=== PATIENT | female | born 1975 | race Caucasian/White ===

== ENCOUNTER → 2020-08-23 | Outpatient (CLI) | payer BC ==
--- NOTE | 2020-09-05 14:59 | MM ---
Reason for exam: screening (asymptomatic). Last mammogram was performed 2 years and 6 months ago. History: Excisional biopsy of the left breast, 2018. Physical Findings: A clinical breast exam by your physician is recommended on an annual basis and results should be correlated with mammographic findings. MG 3D Screening Mammo W/Cad Bilateral CC and MLO view(s) were taken. Prior study comparison: February 19, 2018, mammogram, performed at [facility]. November 12, 2017, mammogram, performed at [facility]. No significant changes when compared with prior studies. ASSESSMENT: Benign, BI-RAD 2 RECOMMENDATION: Routine screening mammogram of both breasts in 1 year.
== END | disposition home or self-care (01) ==
LOC: RADMAMWWP 15:09
PROVIDERS: ATTEND Family Medicine
DX: Z12.31 Encounter for screening mammogram for malignant neoplasm of breast (principal)
CPT/HCPCS: 77063; 77067

== ENCOUNTER → 2022-04-04 | Outpatient (CLI) | payer BC ==
--- NOTE | 2022-04-04 17:01 | MR ---
EXAMINATION TYPE: MR shoulder RT wo con DATE OF EXAM: 04/04/2022 COMPARISON: None. HISTORY: pain R shoulder for 6 months with reduced mobility and difficulty raising arm overhead not i mproved on physical therapy TECHNIQUE: Multiplanar, multisequence imaging of the right shoulder is performed without contrast. FINDINGS: Rotator Cuff: Tiny articular tear distal supraspinatus tendon involving anterior fibers measuring 4 m m AP diameter sagittal image 6 x 7 mm transversely coronal image 10. Infraspinatus tendon is intact. Subscapularis tendon shows increased signal with surrounding fluid. Rotator cuff muscle bulk is prese rved. Acromioclavicular Joint: Moderate capsular hypertrophy. Type II downsloping acromion. Loss of underly ing fat plane at this level for reference coronal image 12. Glenohumeral Joint: No significant spurring. Small joint effusion. Mild to moderate narrowing. Labrum: The superior labrum shows increased signal. Biceps Tendon: The long head of biceps is in normal location within bicipital groove. Bone marrow signal: No focal abnormal marrow signal is appreciated. Other: No additional significant abnormality is appreciated. IMPRESSION: 1. Full-thickness articular surface tear involving the anterior 1/5 fibers supraspinatus tendon. 2. Tearing of the superior labrum may be degenerative in nature. 3. Type II downsloping acromion with suggestion of underlying impingement, correlate clinically.
== END | disposition home or self-care (01) ==
LOC: RADMRIMAIN 11:41
PROVIDERS: ATTEND Family Medicine
DX: M75.121 Complete rotator cuff tear or rupture of right shoulder, not specified as traumatic (principal)

== ENCOUNTER → 2023-04-17 | Outpatient (CLI) | payer BC ==
--- NOTE | 2023-04-17 13:18 | US ---
EXAMINATION TYPE: US arterial LE single level DATE OF EXAM: 04/17/2023 1:01 PM CLINICAL INDICATION: Female, 47 years old with history of I73.9 PERIPHERAL VASC DISEASE; Peripheral v ascular disease. Intermittent claudication. History of: Smoker: Previous Hypertension: yes Diabetic: Pre diabetic Hyperlipidemia: Yes TIA/CVA: No Previous Vascular Surgery: No CAD: No IA: No Vascular Ulcers: None Claudication: Both Gangrene: None Doppler Waveforms: Right: Multiphasic Left: Multiphasic Right Brachial Pressure: 114 Left Brachial Pressure: 111 Ankle-Brachial Indices: Right: 1.19 Left: 1.18 Toe Brachial Indices: Right: 0.89 Left: 0.80 IMPRESSION: Normal MATTIE and TBI indices.
== END | disposition home or self-care (01) ==
LOC: RADUSWWP 12:16
PROVIDERS: ATTEND Family Medicine
DX: I73.9 Peripheral vascular disease, unspecified (principal); E78.5 Hyperlipidemia, unspecified; I10 Essential (primary) hypertension
CPT/HCPCS: 93922

== ENCOUNTER → 2023-10-30 | Outpatient (CLI) | payer BC ==
[2023-10-30 18:36] LABS: Basophils # (A) 0.04 X 10*3/uL (0.00-0.10); Basophils % (A) 0.6 %; Eosinophils # (A) 0 X 10*3/uL (0.04-0.35); Eosinophils % (A) 0 %; HCT 34.9 % (37.2-46.3); HGB 11.4 g/dL (12.0-15.0); Lymphocytes # (A) 2.43 X 10*3/uL (0.90-5.00); Lymphocytes % (A) 34.1 %; MCHC 32.7 g/dL (32.0-37.0); MCV 85.7 FL (80.0-97.0); Mean Platelet Volume 11.2 FL (9.5-12.2); Monocytes # (A) 0.62 X 10*3/uL (0.20-1.00); Monocytes % (A) 8.7 %; NRBC Per 100 WBC 0 X 10*3/uL (0.00-0.01); Neutrophils # (A) 3.97 X 10*3/uL (1.80-7.70); Neutrophils % (A) 55.6 %; Platelet Count 406 X 10*3/uL (140-440); RBC 4.07 X 10*6/uL (4.10-5.20); RDW 13.7 % (11.5-14.5); WBC 7.13 X 10*3/uL (4.50-10.00)
[2023-10-31 00:05] LABS: ALT 25 U/L (8-44); AST 26 U/L (13-35); Albumin 4.4 g/dL (3.8-4.9); Albumin/Globulin Ratio 1.63 Ratio (1.60-3.17); Alkaline Phosphatase 41 U/L (41-126); Blood Urea Nitrogen 15.4 mg/dL (9.0-27.0); Calcium 10.1 mg/dL (8.7-10.3); Carbon Dioxide 22.6 mmol/L (21.6-31.8); Chloride 101 mmol/L (96-109); Chol/HDL Ratio 3.63 Ratio; Globulin 2.7 g/dL (1.6-3.3); Glucose 91 mg/dL (70-110); Potassium 3.6 mmol/L (3.5-5.5); Sodium 139 mmol/L (135-145); Total Bilirubin <0.2 mg/dL (0.3-1.2); Total Protein 7.1 g/dL (6.2-8.2)
== END | disposition home or self-care (01) ==
LOC: LABWHC1 14:32
PROVIDERS: ATTEND Nurse Practitioner Family
DX: Z00.00 Encounter for general adult medical examination without abnormal findings (principal); I10 Essential (primary) hypertension; E88.810 Metabolic syndrome
CPT/HCPCS: 36415; 80053; 80061; 83036; 84439; 84443; 84481; 85025

== ENCOUNTER → 2023-10-30 | Outpatient (CLI) | payer BC ==
--- NOTE | 2023-10-30 18:32 | MM ---
Reason for Exam: Screening (asymptomatic). Last mammogram was performed 3 year(s) and 2 month(s) ago. Patient History: Menarche at age 10. First Full-Term at age 16. 2018, Excisional Biopsy on the Left side. Risk Values: Cait 5 year model risk: 0.8%. NCI Lifetime model risk: 7.8%. Prior Study Comparison: 11/12/2017 Screening Mammogram, [facility]. 02/19/2018 Screening Mammogram, [facility]. 08/23/2020 Bilateral Screening Mammogram, [facility]. Tissue Density: The breasts are heterogeneously dense, which may obscure small masses. Findings: Analyzed By CAD. The pattern is symmetrical. Pattern appears stable. No significant interval change is evident. Scattered benign punctate calcifications are present. There is a new nodule within the medial 3:00 position right breast middle position. This measures 0.7 cm and is 7 cm from the nipple. Additional workup with mammogram and ultrasound is recommended. Overall Assessment: Incomplete: need additional imaging evaluation, BI-RAD 0 Management: Diagnostic Mammogram of the right breast. Diagnostic Breast Ultrasound of the right breast. A negative mammogram report should not preclude additional follow up of suspicious palpable abnormalities. Patient should continue monthly self breast exam. A clinical breast exam by your physician is recommended on an annual basis and results should be correlated with mammographic findings. Note on Cait scores and lifetime risk: 1. A Cait score greater than 3% is considered moderate risk. If this is the case, consider specialist referral to assess eligibility for a risk reducing agent. 2. If overall lifetime risk for the development of breast cancer is 20% or higher, the patient may qualify for future screening with alternating mammogram and breast MRI. Electronically signed and approved by: Gaurav Marrero D.O. Radiologis
== END | disposition home or self-care (01) ==
LOC: RADMAMWWP 14:08
PROVIDERS: ATTEND Obstetrics & Gynecology
DX: Z12.31 Encounter for screening mammogram for malignant neoplasm of breast (principal)
CPT/HCPCS: 77063; 77067

== ENCOUNTER → 2023-12-04 | Outpatient (CLI) | payer BC ==
--- NOTE | 2023-12-04 10:29 | MM ---
Reason for Exam: Additional evaluation requested from abnormal screening. Last screening mammogram was performed 1 month(s) ago. Patient History: Menarche at age 10. First Full-Term at age 16. 2018, Excisional Biopsy on the Left side. Risk Values: Cait 5 year model risk: 0.8%. NCI Lifetime model risk: 7.8%. Tissue Density: Right: The breasts are heterogeneously dense, which may obscure small masses. Findings: Analyzed By CAD. On the mediolateral view and 8mm rounded density with partially circumscribed margins may be in the upper medial left breast. The suspect density within the lower inner quadrant is not clearly identified. Ultrasound is recommended for additional evaluation. Overall Assessment: Incomplete: need additional imaging evaluation, BI-RAD 0 Management: Diagnostic Breast Ultrasound of the right breast. A negative mammogram report should not preclude additional follow up of suspicious palpable abnormalities. Patient should continue monthly self breast exam. A clinical breast exam by your physician is recommended on an annual basis and results should be correlated with mammographic findings. Note on Cait scores and lifetime risk: 1. A Cait score greater than 3% is considered moderate risk. If this is the case, consider specialist referral to assess eligibility for a risk reducing agent. 2. If overall lifetime risk for the development of breast cancer is 20% or higher, the patient may qualify for future screening with alternating mammogram and breast MRI. Electronically signed and approved by: Gaurav Marrero D.O. Radiologis
--- NOTE | 2023-12-04 11:07 | USB ---
Reason for Exam: Additional evaluation requested from abnormal screening. Patient History: Menarche at age 10. First Full-Term at age 16. 2018, Excisional Biopsy on the Left side. Risk Values: Cait 5 year model risk: 0.8%. NCI Lifetime model risk: 7.8%. Technique: Method: Targeted. Prior Study Comparison: 02/19/2018 Screening Mammogram, [facility]. 08/23/2020 Bilateral Screening Mammogram, [facility]. 10/30/2023 Bilateral MG 3D screening mammo w/cad, [facility]. Findings: The medial section of the breast of the right breast, the axilla of the right breast and the retroareolar of the right breast were scanned. There is a simple appearing cyst with good through transmission and posterior wall enhancement 1:00 position 7 cm from the nipple. This appears to correlate with the mammographic finding. This measures 0.7 x 0.7 x 0.7 cm. Overall Assessment: Benign, BI-RAD 2 Management: Screening Mammogram of both breasts in 1 year. A clinical breast exam by your physician is recommended on an annual basis and results should be correlated with mammographic findings. This exam should not preclude additional follow-up of suspicious palpable abnormalities. Results were given to the patient verbally at the time of exam. Electronically signed and approved by: Gaurav Marrero D.O. Radiologis
== END | disposition home or self-care (01) ==
LOC: RADMAMWWP 10:04
PROVIDERS: ATTEND Obstetrics & Gynecology
DX: R92.331 Mammographic heterogeneous density, right breast (principal)
CPT/HCPCS: 77061; 77065

== ENCOUNTER → 2024-04-06 | Outpatient (CLI) | payer BC ==
[2024-04-06 12:46] VITALS: BP 123/79; PULSE 97; RESP 16; TEMP 98.1
[2024-04-06] MEDS: SODIUM CHLORIDE 0.9% 500 ML 500 ML in EMPTY BAG 1 BAG IV PRN (12:47)
[2024-04-06] MEDS: SODIUM FERRIC GLUCONAT-SUCROSE 62.5 MG in SODIUM CHLORIDE 0.9% 100 ML IVPB NR (13:21)
== END ==
LOC: PROCWHC3 12:16
PROVIDERS: ATTEND Nurse Practitioner Family
DX: D50.9 Iron deficiency anemia, unspecified (principal)
CPT/HCPCS: 96365; J2916